=== PATIENT | female | born 2000 | race Caucasian/White ===

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

== ENCOUNTER 2020-01-06 21:44 | Emergency (ER) | payer MEDICAID ==
--- NOTE | 2020-01-06 22:58 | ER Document Report ---
ED General - General Chief Complaint: Headache Stated Complaint: HEADACHE/SORE THROAT/RUNNY NOSE Time Seen by Provider: 01/06/20 22:29 Primary Care Provider: JANINE JACINTO MD [Primary Care Provider] - Follow up as needed Notes: CHIEF COMPLAINT: Multiple complaints HPI: 19-year-old female presenting with nasal congestion sore throat mildly productive cough for 1 week. No fever. No shortness of breath. No abdominal pain nausea vomiting or dysuria. Patient is concerned about COVID ROS: See HPI - all other systems were reviewed and are otherwise negative Constitutional: no fever Eyes: no drainage, no blurred vision ENT: + runny nose, + sore throat Cardiovascular: no chest pain Resp: no SOB, + cough GI: no vomiting, no diarrhea, no abdominal pain : no dysuria Integumentary: no rash Allergy: no hives Musculoskeletal: no extremity pain or swelling Neurological: no numbness/tingling, no weakness MEDICATIONS: I agree with the patient medications as charted by the RN. ALLERGIES: I agree with the allergies as charted by the RN. PAST MEDICAL HISTORY/PAST SURGICAL HISTORY: Reviewed and agree as charted by RN. SOCIAL HISTORY: Reviewed and agree as charted by RN. FAMILY HISTORY: No significant familial comorbid conditions directly related to patient complaint EXAM: Reviewed vital signs as charted by RN. CONSTITUTIONAL: Alert and oriented and responds appropriately to questions. Well-appearing; well-nourished HEAD: Normocephalic; atraumatic EYES: PERRL; Conjunctivae clear, sclerae non-icteric ENT: normal nose; no rhinorrhea; moist mucous membranes; pharynx mildly erythematous, no uvula edema or deviation, no tonsillar hypertrophy, phonation normal NECK: Supple without meningismus; non-tender; no cervical lymphadenopathy, no masses CARD: RRR; no murmurs, no clicks, no rubs, no gallops; symmetric distal pulses RESP: Normal chest excursion without splinting or tachypnea; breath sounds clear and equal bilaterally; no wheezes, no rhonchi, no rales, pulse oximetry 100% on room air not hypoxic ABD/GI: Normal bowel sounds; non-distended; soft, non-tender, no rebound, no guarding; no palpable organomegaly or masses. BACK: The back appears normal and is non-tender to palpation, there is no CVA tenderness EXT: Normal ROM in all joints; non-tender to palpation; no cyanosis, no effusions, no edema SKIN: Normal color for age and race; warm; dry; good turgor; no acute lesions noted NEURO: Moves all extremities equally; Motor and sensory function intact PSYCH: The patient's mood and manner are appropriate. Grooming and personal hygiene are appropriate. MDM: 19-year-old female presenting for sore throat and upper respiratory symptoms for a week. Concerned about COVID. Will obtain COVID rapid strep and chest x-ray. TRAVEL OUTSIDE OF THE [place] IN LAST 30 DAYS: No - Related Data Allergies/Adverse Reactions: amoxicillin [Amoxicillin] Allergy (Verified 05/23/19 18:09) Past Medical History - Social History Smoking Status: Unknown if Ever Smoked Family History: None, Other - Per chart review no significant family history to today's presentation Pulmonary Medical History: Reports: Hx Asthma Renal/ Medical History: Reports: Hx Kidney Stones. Denies: Hx Peritoneal Dialysis Psychiatric Medical History: Reports: Hx Attention Deficit Hyperactivity Disorder Past Surgical History: Reports: Hx Adenoidectomy, Hx Tonsillectomy - Immunizations Immunizations up to date: Yes Hx Diphtheria, Pertussis, Tetanus Vaccination: Yes Physical Exam - Vital signs Vitals: Temp 98.3 F 01/06/20 21:45 Course - Re-evaluation Re-evalutation: 01/07/20 00:01 Rapid strep and chest x-ray negative for acute findings will discharge home with albuterol inhaler follow-up PCP person under investigation for COVID-19 - Vital Signs Vital signs: Temp Pulse Resp BP Pulse Ox 98.3 F 104 H 20 139/98 H 99 01/06/20 22:47 01/06/20 22:47 01/06/20 22:47 01/06/20 22:47 01/06/20 22:47 Discharge - Discharge Clinical Impression: Person under investigation for COVID-19, Sore throat (viral) Condition: Stable Disposition: HOME, SELF-CARE Additional Instructions: You are considered a person under investigation for COVID-19 at this time self quarantine at home until you have your test result. These normally take 2 to 5 days and you should receive a call from someone at the hospital about your result. Use the albuterol inhaler 2 puffs every 4 hours as needed for shortness of breath or cough. Continue [id number] medications. Follow-up with primary care provider or return for worsening condition Prescriptions: Albuterol Sulfate [Proair HFA Inhalation Aerosol 8.5 gm MDI] 2 puff IH Q4H PRN #1 mdi PRN Reason: Forms: Return to Work Referrals: JANINE JACINTO MD [Primary Care Provider] - Follow up as needed
--- NOTE | 2020-01-06 23:53 | RADIOLOGY REPORT (SQ) ---
EXAM DESCRIPTION: XR CHEST 1 VIEW COMPLETED DATE/TME: 01/06/2020 22:54 CLINICAL HISTORY: 19 years, Female, cough COMPARISON: 06/16/2018 chest NUMBER OF VIEWS: 1 TECHNIQUE: Portable chest LIMITATIONS: None. FINDINGS: Heart size is normal. Minimal scarring in the right lung base. No pneumothorax. Lungs are otherwise clear IMPRESSION: No acute cardiopulmonary process copyright 2010 [employer]- All Rights Reserved
[2020-01-07 00:49] VITALS: BP 139/89
== END 2020-01-07 00:49 | disposition home or self-care (01) ==
LOC: ER 21:44
DX: U07.1 COVID-19 (principal); J02.8 Acute pharyngitis due to other specified organisms; B97.89 Other viral agents as the cause of diseases classified elsewhere; R05 Cough; R09.81 Nasal congestion; J45.909 Unspecified asthma, uncomplicated; F90.9 Attention-deficit hyperactivity disorder, unspecified type; Z79.899 Other long term (current) drug therapy; Z88.0 Allergy status to penicillin
CPT/HCPCS: 99284; 87070; 87880; 87635; 87077; 71045; C9803

== ENCOUNTER 2020-01-09 16:17 | Emergency (ER) | payer MEDICAID ==
[2020-01-09] MEDS ORDERED: NORMAL SALINE 1000 ML 1,000 ML IV ONE (16:48)
[2020-01-09] MEDS ORDERED: ONDANSETRON HCL INJ/PF 4 MG/2 ML SDV IV ONE (16:48)
--- NOTE | 2020-01-09 17:02 | ER Document Report ---
ED General - General Chief Complaint: Nausea/Vomiting/Diarrhea Stated Complaint: DIZZY/COUGH/CONGESTION/NAUSEA/DIAHERRA Time Seen by Provider: 01/09/20 16:47 Primary Care Provider: JANINE JACINTO MD [Primary Care Provider] - Follow up as needed TRAVEL OUTSIDE OF THE [place] IN LAST 30 DAYS: No - HPI Notes: Patient is a 19-year-old female with a history of ADHD, just contacted yesterday with a positive COVID-19 diagnosis, who presents to the emergency department for evaluation of worsening of symptoms. She states that her cough is worse. She is short of breath when she is coughing. Her cough is only intermittently productive. She has body aches. She has lost her sense of taste and smell. She has some nausea. She is still urinating. She states that she has fevers, the Tylenol helps somewhat but does not resolve it entirely. - Related Data Allergies/Adverse Reactions: amoxicillin [Amoxicillin] Allergy (Verified 05/23/19 18:09) Home Medications: Vyvanse Past Medical History - General Information source: Patient - Social History Smoking Status: Never Smoker Drug Abuse: None Family History: None, Other - Per chart review no significant family history to today's presentation Pulmonary Medical History: Reports: Hx Asthma Renal/ Medical History: Reports: Hx Kidney Stones. Denies: Hx Peritoneal Dialysis Psychiatric Medical History: Reports: Hx Attention Deficit Hyperactivity Disorder Past Surgical History: Reports: Hx Adenoidectomy, Hx Tonsillectomy - Immunizations Immunizations up to date: Yes Hx Diphtheria, Pertussis, Tetanus Vaccination: Yes Review of Systems - Review of Systems Constitutional: See HPI EENT: See HPI Cardiovascular: No symptoms reported Respiratory: See HPI Gastrointestinal: See HPI Genitourinary: No symptoms reported Musculoskeletal: See HPI Skin: No symptoms reported Neurological/Psychological: No symptoms reported Physical Exam - Vital signs Vitals: Temp Pulse Resp BP Pulse Ox 99.1 F 111 H 16 118/82 100 01/09/20 16:41 01/09/20 16:41 01/09/20 16:41 01/09/20 16:41 01/09/20 16:41 - Notes Notes: Vital signs reviewed, please refer to chart. Head is normocephalic, atraumatic. Pupils equal round, reactive to light. Oral mucosa is moist. Uvula is midline. Pharynx is without erythema or exudate. Neck is supple without meningismus. Heart is regular rate and rhythm. Lungs are clear to auscultation bilaterally. Abdomen is soft, nontender, normoactive bowel sounds throughout. Extremities without cyanosis, clubbing. Posterior calves are nontender. Peripheral pulses are equal. Skin is warm and dry. Patient is awake, alert, neurological exam is nonfocal. Course - Re-evaluation Re-evalutation: 01/09/20 17:02 Patient presents to the emergency department for evaluation. She is a known COVID-19 patient. She is mildly tachycardic. I explained to the patient that her vital signs are otherwise unremarkable. She is not really tried much in the way of [id number] medications to help. She states everyone in her family is sick. I advised her she should continue to quarantine at home, particularly while symptomatic. Lab work and fluids are ordered, patient will be given IV Zofran. She is currently stable, we will continue to monitor. 01/09/20 19:08 Patient's laboratory investigations show a mild leukopenia, all findings consistent with active COVID-19 infection. The patient is currently stable. Her labs showed no other significant abnormalities, chest x-ray normal. I will go ahead and send her home with a small amount of Zofran. She is encouraged to stay hydrated, continue symptomatic medications, continue home isolation. She is to follow-up with primary care, return to the ED with worsening. - Vital Signs Vital signs: Temp Pulse Resp BP Pulse Ox 99.1 F 111 H 16 118/82 100 01/09/20 16:41 01/09/20 16:41 01/09/20 16:41 01/09/20 16:41 01/09/20 16:41 - Laboratory Result Diagrams: 01/09/20 18:25 01/09/20 18:25 Laboratory results interpreted by me: 01/09/20 01/09/20 18:25 18:25 WBC 3.3 L RBC 5.47 H MCV 79 L MCH 25.9 L RDW 15.4 H [place] % (Auto) 13.3 H Absolute Neuts (auto) 1.6 L Urine Blood SMALL H Urine Urobilinogen 4.0 H Ur Leukocyte Esterase TRACE H - Diagnostic Test Radiology reviewed: Reports reviewed Radiology results interpreted by me: 01/09/20 19:08 Chest X-Ray 01/09/20 00:00 IMPRESSION: NO ACUTE FINDINGS. Discharge - Discharge Clinical Impression: COVID-19 Condition: Stable Disposition: HOME, SELF-CARE Instructions: Antinausea Medication ([facility]), Intravenous (IV) Fluids ([facility]), Viral Syndrome ([facility]) Additional Instructions: Please continue to self isolate at home. Symptomatic medications at home as needed. Use Zofran as needed for nausea. Follow-up with primary care in 1 to 2 weeks. If you develop increased difficulty breathing, or any other new or c oncerning symptoms, please return immediately to the ER for further evaluation. Referrals: JANINE JACINTO MD [Primary Care Provider] - Follow up as needed
--- NOTE | 2020-01-09 17:08 | RADIOLOGY REPORT (SQ) ---
EXAM DESCRIPTION: CHEST SINGLE VIEW IMAGES COMPLETED DATE/TIME: 01/09/2020 4:53 pm REASON FOR STUDY: bed 5 +covid c/o short of breath COMPARISON: 01/06/2020 TECHNIQUE: Single frontal radiographic view of the chest acquired. NUMBER OF VIEWS: One view. LIMITATIONS: None. FINDINGS: LUNGS AND PLEURA: No pneumothorax. No consolidation or pleural effusion. MEDIASTINUM AND HILAR STRUCTURES: Stable. HEART AND VASCULAR STRUCTURES: Stable. BONES: No acute findings. HARDWARE: None in the chest. OTHER: No other significant finding. IMPRESSION: NO ACUTE FINDINGS. TECHNICAL DOCUMENTATION: JOB ID: [id number] [id number] 2010 [employer]- All Rights Reserved Reading location - IP/workstation name: [email or web address]
[2020-01-09 18:47] LABS: ABSOLUTE LYMPHOCYTES (AUTO) 1.2 10^3/uL (0.5-4.7); ABSOLUTE MONOCYTES (AUTO) 0.4 10^3/uL (0.1-1.4); ABSOLUTE NEUT (AUTO) 1.6 10^3/uL (1.7-8.2); BASOPHILS % (AUTO) 0.4 % (0-2); EOSINOPHILS % (AUTO) 0.5 % (0-6); HEMOGLOBIN 14.2 g/dL (12.0-15.5); LYMPHOCYTES % (AUTO) 36.6 % (13-45); MEAN CORPUSCULAR HEMOGLOBIN 25.9 pg (27.0-33.4); MEAN CORPUSCULAR HGB CONC 32.9 g/dL (32.0-36.0); MEAN CORPUSCULAR VOLUME 79 fl (80-97); MONOCYTES % (AUTO) 13.3 % (3-13); PLATELET COUNT 214 10^3/uL (150-450); RED BLOOD COUNT 5.47 10^6/uL (3.72-5.28); RED CELL DISTRIBUTION WIDTH 15.4 % (11.5-14.0); SEGMENTED NEUTROPHILS % (AUTO) 49.2 % (42-78); TOTAL CELLS COUNTED % (AUTO) 100 %; WHITE BLOOD COUNT 3.3 10^3/uL (4.0-10.5)
[2020-01-09 18:49] LABS: APPEARANCE,URINE SLIGHTLY-CLOUDY; BILIRUBIN,URINE NEGATIVE (NEGATIVE); COLOR,URINE YELLOW; GLUCOSE, URINE NEGATIVE (NEGATIVE); KETONES,URINE NEGATIVE (NEGATIVE); LEUKOCYTE ESTERASE,URINE TRACE (NEGATIVE); NITRITE,URINE NEGATIVE (NEGATIVE); PROTEIN,URINE NEGATIVE (NEGATIVE)
[2020-01-09 19:04] LABS: ALBUMIN 4.3 g/dL (3.7-5.6); ALKALINE PHOSPHATASE 63 U/L (50-135); ANION GAP 9 (5-19); ASPARTATE AMINO TRANSFERASE 22 U/L (5-30); BILIRUBIN,TOTAL 0.3 mg/dL (0.2-1.3); BLOOD UREA NITROGEN 7 mg/dL (7-20); CALCIUM 8.5 mg/dL (8.4-10.2); CARBON DIOXIDE 27 mmol/L (22-30); CHLORIDE 106 mmol/L (98-107); GLUCOSE 92 mg/dL (75-110); POTASSIUM 3.9 mmol/L (3.6-5.0); TOTAL PROTEIN 7.3 g/dL (6.3-8.2)
[2020-01-09] MEDS ORDERED: ONDANSETRON ODT 4 MG TAB (6 TAB/ER DISP) PO PRN (19:09)
[2020-01-09 19:31] VITALS: BP 120/88
== END 2020-01-09 19:29 | disposition home or self-care (01) ==
LOC: ER 16:17
DX: U07.1 COVID-19 (principal); R05 Cough; R06.02 Shortness of breath; R11.0 Nausea; R43.8 Other disturbances of smell and taste; R50.9 Fever, unspecified; R00.0 Tachycardia, unspecified; J45.909 Unspecified asthma, uncomplicated; F90.9 Attention-deficit hyperactivity disorder, unspecified type; Z79.899 Other long term (current) drug therapy
CPT/HCPCS: 99284; 96361; 96374; 36415; 84703; 85025; 80053; 81001; 71045; J2405; J7030

== ENCOUNTER 2020-03-31 20:00 | Emergency (ER) | payer MEDICAID ==
--- NOTE | 2020-03-31 20:28 | ER Document Report ---
HPI - HPI Patient complains to provider of: Dental Pain Time Seen by Provider: 03/31/20 20:23 Context: 19-year-old female past medical history significant for ADHD presents to the emergency room complaining of worsening pain to right lower posterior gum. Patient states she had a wisdom tooth pulled 2 days ago but the pain has been getting worse. States she is been taking the hydrocodone, ibuprofen, and using the mouth rinse that they gave her without relief. Her last dose of hydrocodone was at 8:00 this morning. Last dose of ibuprofen at noon. States she did call the dentist this morning they recommend she come to the office for reevaluation when the emergency room. Patient states she was unable to get to the office earlier today and opted to come to the emergency room. She is eating and drinking normally. She is not running any fevers. States she is also on antibiotics but she does not remember what it is called. She denies any chance of . Associated Symptoms: None Exacerbated by: Denies Relieved by: Denies Similar symptoms previously: No Recently seen / treated by doctor: Yes - [place] tooth extraction 2 days ago. - ROS Systems Reviewed and Negative: Yes All other systems reviewed and negative - CONSTITUTIONAL Constitutional: DENIES: Fever - NEURO Neurology: DENIES: Weakness - RESPIRATORY Respiratory: DENIES: Trouble Breathing, Coughing - REPRODUCTIVE Reproductive: DENIES: : - DERM Skin Color: Normal, [place] Skin Problems: None Past Medical History - General Information source: Patient - Social History Smoking Status: Never Smoker Frequency of alcohol use: None Drug Abuse: None Family History: None, Other - Per chart review no significant family history to today's presentation Pulmonary Medical History: Reports: Hx Asthma Renal/ Medical History: Reports: Hx Kidney Stones. Denies: Hx Peritoneal Dialysis Psychiatric Medical History: Reports: Hx Attention Deficit Hyperactivity Disorder Past Surgical History: Reports: Hx Adenoidectomy, Hx Tonsillectomy - Immunizations Immunizations up to date: Yes Hx Diphtheria, Pertussis, Tetanus Vaccination: Yes Vertical Provider Document - CONSTITUTIONAL Agree With Documented VS: Yes Exam Limitations: No Limitations General Appearance: Mild Distress - INFECTION CONTROL TRAVEL OUTSIDE OF THE [place] IN LAST 30 DAYS: No - HEENT HEENT: Atraumatic, Normocephalic. negative: Pharyngeal Exudate, Pharyngeal Erythema, Tympanic Membrane Red, Tympanic Membrane Bulging Mouth Diagram: 1 - Well-healing dental extraction area. No erythema, no discharge or draining. Nontender to palpation. - NECK Neck: Normal Inspection, Supple. negative: Lymphadenopathy-Left, Lymphadenopathy-Right - RESPIRATORY Respiratory: Breath Sounds Normal, No Respiratory Distress, Chest Non-Tender - CARDIOVASCULAR Cardiovascular: Regular Rate, Regular Rhythm, No Murmur - MUSCULOSKELETAL/EXTREMETIES Musculoskeletal/Extremeties: FROM - NEURO Level of Consciousness: Awake, Alert, Appropriate Motor/Sensory: No Motor Deficit, No Sensory Deficit - DERM Integumentary: Warm, Dry, No Rash Course - Re-evaluation Re-evalutation: 03/31/20 20:36 Patient is nontoxic appearing, talking in full sentences. Afebrile and nontoxic-appearing, counseled patient that the site is healing well. There is no erythema. There is no discharge or draining. It is nontender to palpation. No obvious dry socket noted. No facial swelling. No lymphadenopathy. She was counseled to continue with the hydrocodone, Motrin, and mouth rinse as prescribed by the dentist. She can also use warm compresses 20 minutes 3 times a day. She is to follow-up with her dentist tomorrow. Patient was given strict return to the emergency room guidelines. Return for any new or worsening symptoms. All questions were answered. Patient verbalized understanding and agrees with plan of care. 03/31/20 23:09 Discharge - Discharge Clinical Impression: Pain, dental Condition: Stable Disposition: HOME, SELF-CARE Instructions: Toothache ([facility]) Additional Instructions: Continue with medications that were prescribed to you by your dentist. Use warm compresses 20 minutes 3 times a day. Follow-up with your dentist tomorrow. Return to the emergency room for any new or worsening symptoms. Referrals: JANINE JACINTO MD [Primary Care Provider] - Follow up as needed
== END 2020-03-31 21:20 | disposition home or self-care (01) ==
LOC: ER 20:00
DX: K08.9 Disorder of teeth and supporting structures, unspecified (principal); Z98.818 Other dental procedure status; F90.9 Attention-deficit hyperactivity disorder, unspecified type
CPT/HCPCS: 99282